=== PATIENT | male | born 1955 | race African-American/Black ===

== ENCOUNTER 2017-09-27 14:29 | Emergency (ER) | payer BC, MEDICAID ==
[2017-09-27 14:42] VITALS: BP 142/87
[2017-09-27] MEDS ORDERED: LIDOCAINE 1% INJ-PF (10 MG/ML) 30 ML SDV INJ ONE (14:53)
[2017-09-27] MEDS ORDERED: CEFTRIAXONE INJ 250 MG VIAL IM ONE (14:53)
[2017-09-27] MEDS ORDERED: AZITHROMYCIN 250 MG TABLET PO ONE (14:53)
--- NOTE | 2017-09-27 14:58 | ER Document Report ---
ED GI/ - General Chief Complaint: STD Exposure Stated Complaint: POSSIBLE STD Time Seen by Provider: 09/27/17 14:45 Mode of Arrival: Ambulatory Information source: Patient Notes: 62-year-old man presents to ED for complaint of possible STD exposure. He states that his girlfriend has abated use white discharge for the last 3 days and they are having unprotected sex. Patient denies any symptoms, any discharge , any pain or discomfort when urination. TRAVEL OUTSIDE OF THE [place] IN LAST 30 DAYS: No - HPI Patient complains to provider of: Other - Possible STD exposure Onset: Other - The current monogamous relationship with a girlfriend who has vaginal discharge Timing/Duration: Gradual Quality of pain: No pain Pain Level: Denies Sexual history: Unprotected intercourse, STD exposure - Possible Associated symptoms: None Exacerbated by: Denies Relieved by: Denies Similar symptoms previously: No Recently seen / treated by doctor: No - Related Data Allergies/Adverse Reactions: acetaminophen [From Tylenol] Allergy (Verified 09/27/17 14:30) ibuprofen Allergy (Verified 09/27/17 14:30) Past Medical History - General Information source: Patient - Social History Smoking Status: Current Every Day Smoker Cigarette use (# per day): Yes - One half pack per day Chew tobacco use (# tins/day): No Smoking Education Provided: Yes - 4 minutes Frequency of alcohol use: Heavy Drug Abuse: None Occupation: Retired Lives with: Spouse/Significant other Family History: Reviewed & Not Pertinent Patient has suicidal ideation: No Patient has homicidal ideation: No - Past Medical History Cardiac Medical History: Reports: None Pulmonary Medical History: Reports: None EENT Medical History: Reports: None Neurological Medical History: Reports: None Endocrine Medical History: Reports: None Renal/ Medical History: Reports: None Malignancy Medical History: Reports None GI Medical History: Reports: None Musculoskeltal Medical History: Reports Hx Arthritis, Reports Hx Musculoskeletal Deformity, Reports Hx Musculoskeletal Trauma Skin Medical History: Reports None Psychiatric Medical History: Reports: None Traumatic Medical History: Reports: None Infectious Medical History: Reports: None Past Surgical History: Reports: Hx Orthopedic Surgery - Carpal tunnel - Immunizations Immunizations up to date: Yes Review of Systems - Review of Systems Constitutional: No symptoms reported EENT: No symptoms reported Cardiovascular: No symptoms reported Respiratory: No symptoms reported Gastrointestinal: No symptoms reported Genitourinary: Other - Possible STD exposure Male Genitourinary: No symptoms reported Musculoskeletal: No symptoms reported Skin: No symptoms reported Hematologic/Lymphatic: No symptoms reported Neurological/Psychological: No symptoms reported -: Yes All other systems reviewed and negative Physical Exam - Vital signs Vitals: Temp Pulse Resp BP Pulse Ox 98.8 F 77 16 142/87 H 96 09/27/17 14:40 09/27/17 14:40 09/27/17 14:40 09/27/17 14:40 09/27/17 14:40 Interpretation: Normal - General General appearance: Appears well, Alert - HEENT Head: Normocephalic, Atraumatic Eyes: Normal Pupils: PERRL - Respiratory Respiratory status: No respiratory distress Chest status: Nontender Breath sounds: Normal Chest palpation: Normal - Cardiovascular Rhythm: Regular Heart sounds: Normal auscultation Murmur: No - Abdominal Inspection: Normal Distension: No distension Bowel sounds: Normal Tenderness: Nontender Organomegaly: No organomegaly - Genitourinary Tenderness: Nontender Cremasteric reflex: Normal Scrotum: Normal - Back Back: Normal, Nontender - Extremities General upper extremity: Normal inspection, Nontender, Normal color, Normal ROM , Normal temperature General lower extremity: Normal inspection, Nontender, Normal color, Normal ROM , Normal temperature, Normal weight bearing. No: Izabel's sign - Neurological Neuro grossly intact: Yes Cognition: Normal Orientation: AAOx4 Blount Coma Scale Eye Opening: Spontaneous Robb Coma Scale Verbal: Oriented Robb Coma Scale Motor: Obeys Commands Blount Coma Scale Total: 15 Speech: Normal Motor strength normal: LUE, RUE, LLE, RLE Sensory: Normal - Psychological Associated symptoms: Normal affect, Normal mood - Skin Skin Temperature: Warm Skin Moisture: Dry Skin Color: Normal Course - Re-evaluation Re-evalutation: 09/27/17 14:58 Patient presented to the ED for possible STD exposure. He is with his girlfriend who has abated use whitish green vaginal discharge. He states he has never had any STD in the past. He was treated with Rocephin and azithromycin while in the emergency room rather than wait for the results of his test. - Vital Signs Vital signs: Temp Pulse Resp BP Pulse Ox 98.8 F 77 16 142/87 H 96 09/27/17 14:40 09/27/17 14:40 09/27/17 14:40 09/27/17 14:40 09/27/17 14:40 - Laboratory Laboratory results interpreted by me: 09/27/17 14:47 Urine Glucose (UA) 50 H Urine Urobilinogen 2.0 H Discharge - Discharge Clinical Impression: Possible exposure to STD HTN (hypertension) Qualifiers: Hypertension type: unspecified Qualified Code(s): I10 - Essential (primary) hypertension Condition: Stable Disposition: HOME, SELF-CARE Instructions: Family Physicians / Practices Additional Instructions: You were seen today for possible exposure to STDs. States your significant other has vaginal discharge. CEPHALOSPORINS: An antibiotic of the cephalosporin class has been prescribed. This type of antibiotic covers a wide variety of infections, including those of the skin, lungs, middle ear, and urinary tract. This antibiotic is somewhat similar to the penicillin family. In rare cases , a person who is allergic to penicillin will also be allergic to this medication. If you have had a severe allergic reaction to penicillin, and have not taken this antibiotic since that time, notify your doctor. Antibiotics which cover many germs ("broad spectrum" antibiotics) are more likely to cause diarrhea or "yeast" infections. Women prone to vaginal yeast problems may suffer an attack after taking this antibiotic. In infants, oral thrush (white spots "stuck" on the cheek) or yeast diaper rash may result. See your doctor if these problems occur. Call the doctor at once if you develop hives, itching, shortness of breath , or lightheadedness. AZITHROMYCIN: Azithromycin (Zithromax) is a broad spectrum antibiotic in the same class as erythromycin. It can treat a variety of bacterial infections, but is most frequently used for respiratory infections. Azithromycin is extremely long-lasting. It accumulates in body tissues and continues to kill bacteria for many days. In order to improve absorption, Azithromycin should be taken at least one hour before or two hours after a meal. It does not have the same strong tendency to upset the stomach as erythromycin and is usually very well tolerated. Patients who have had a rash or other true allergic reactions to erythromycin should not take this medication. Call if you develop gastrointestinal distress, severe diarrhea, rash, hives, itching, or shortness of breath. You can call tomorrow morning after 9:00 [phone] for your culture results. If the cultures were positive you can need to wait 7 days before having any sexual intercourse if your cultures are negative then year clear. FOLLOW-UP CARE: If you have been referred to a physician for follow-up care, call the physician s office for an appointment as you were instructed or within the next two days. If you experience worsening or a significant change in your symptoms, notify the physician immediately or return to the Emergency Department at any time for re-evaluation. Forms: Elevated Blood Pressure, Smoking Cessation Education Referrals: BRIANNA BRAVO MD [ACTIVE STAFF] - Follow up as needed
[2017-09-27 15:15] LABS: APPEARANCE,URINE CLEAR; BILIRUBIN,URINE NEGATIVE (NEGATIVE); COLOR,URINE YELLOW; GLUCOSE, URINE 50 mg/dL (NEGATIVE); KETONES,URINE NEGATIVE (NEGATIVE); LEUKOCYTE ESTERASE,URINE NEGATIVE (NEGATIVE); NITRITE,URINE NEGATIVE (NEGATIVE); PROTEIN,URINE NEGATIVE (NEGATIVE); URINE SPECIFIC GRAVITY 1.016
[2017-09-27 16:47] LABS: CHLAM PCR NOT DETECTED (NOT DETECT); GON PCR NOT DETECTED (NOT DETECT)
== END 2017-09-27 15:29 | disposition home or self-care (01) ==
LOC: ER 14:29
DX: Z20.2 Contact with and (suspected) exposure to infections with a predominantly sexual mode of transmission (principal); I10 Essential (primary) hypertension; F17.210 Nicotine dependence, cigarettes, uncomplicated
CPT/HCPCS: 99283; 96372; 87086; 81001; 87491; 87591; Q0144; J3490; J0696

== ENCOUNTER 2019-02-17 01:22 | Emergency (ER) | payer SELFPAY ==
[2019-02-17 01:45] VITALS: BP 158/86
== END 2019-02-17 03:51 | disposition left against medical advice (07) ==
LOC: ER 01:22
DX: Z53.21 Procedure and treatment not carried out due to patient leaving prior to being seen by health care provider (principal); H57.12 Ocular pain, left eye

== ENCOUNTER 2019-07-12 11:32 | Emergency (ER) | payer SELFPAY ==
--- NOTE | 2019-07-12 11:49 | ER Document Report ---
ED Medical Screen (RME) - General Chief Complaint: Foot Pain Stated Complaint: TOE/FOOT PAIN Time Seen by Provider: 07/12/19 11:39 TRAVEL OUTSIDE OF THE [place] 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 his pain and swelling redness has become progressively worse over the last 3 weeks. Is not tried any [id number] medications. Patient was seen in [place] last week by his PCP, states they gave him a cream for his foot but it caused him to "burn". Patient is supposed be on blood pressure medication and he is not sure why he did get a refill of his blood pressure medication. Denies any blurred vision double vision loss of vision, chest pain or shortness of breath, fever chills. I have greeted and performed a rapid initial assessment of this patient. A comprehensive ED assessment and evaluation of the patient, analysis of test results and completion of the medical decision making process will be conducted by additional ED providers. PHYSICAL EXAMINATION: GENERAL: Well-appearing, well-nourished and in no acute distress. HEAD: Atraumatic, normocephalic CV: s1, s2 regular LUNGS: No respiratory distress Musculoskeletal: Normal range of motion NEUROLOGICAL: Normal speech, normal gait. SKIN: Warm, Dry, normal turgor, no rashes or lesions noted. left 4th digit with erythema, induration, warmth to touch with abrasion. cap refill < 3 seconds. - Related Data Allergies/Adverse Reactions: acetaminophen [From Tylenol] Allergy (Verified 09/27/17 14:30) ibuprofen Allergy (Verified 09/27/17 14:30) Past Medical History Renal/ Medical History: Denies: Hx Peritoneal Dialysis Musculoskeltal Medical History: Reports Hx Arthritis, Reports Hx Musculoskeletal Deformity, Reports Hx Musculoskeletal Trauma Past Surgical History: Reports: Hx Orthopedic Surgery - Carpal tunnel - Immunizations Immunizations up to date: Yes
[2019-07-12 12:37] LABS: ABSOLUTE EOSINOPHILS # (AUTO) 0.1 10^3/uL (0.0-0.6); ABSOLUTE LYMPHOCYTES (AUTO) 1.4 10^3/uL (0.5-4.7); ABSOLUTE MONOCYTES (AUTO) 0.7 10^3/uL (0.1-1.4); ABSOLUTE NEUT (AUTO) 4.1 10^3/uL (1.7-8.2); BASOPHILS % (AUTO) 0.4 % (0-2); EOSINOPHILS % (AUTO) 1.8 % (0-6); HEMATOCRIT 44.9 % (37.9-51.0); HEMOGLOBIN 15.7 g/dL (13.5-17.0); LYMPHOCYTES % (AUTO) 21.6 % (13-45); MEAN CORPUSCULAR HEMOGLOBIN 32.5 pg (27.0-33.4); MEAN CORPUSCULAR HGB CONC 34.9 g/dL (32.0-36.0); MEAN CORPUSCULAR VOLUME 93 fl (80-97); PLATELET COUNT 262 10^3/uL (150-450); RED BLOOD COUNT 4.83 10^6/uL (4.35-5.55); RED CELL DISTRIBUTION WIDTH 13.1 % (11.5-14.0); SEGMENTED NEUTROPHILS % (AUTO) 65.2 % (42-78); TOTAL CELLS COUNTED % (AUTO) 100 %; WHITE BLOOD COUNT 6.3 10^3/uL (4.0-10.5)
--- NOTE | 2019-07-12 12:48 | RADIOLOGY REPORT (SQ) ---
EXAM DESCRIPTION: TOE LEFT IMAGES COMPLETED DATE/TIME: 07/12/2019 12:35 pm REASON FOR STUDY: 4th toe with swelling, tenderness, open wound COMPARISON: None. NUMBER OF VIEWS: Three views. TECHNIQUE: AP, lateral, and oblique images acquired of the left fourth toe. LIMITATIONS: None. FINDINGS: MINERALIZATION: Normal. BONES: No acute fracture or dislocation. No worrisome bone lesions. JOINTS: No effusions. SOFT TISSUES: Diffuse 4th toe soft tissue swelling is present without soft tissue gas or radiopaque f oreign body OTHER: No other significant finding. IMPRESSION: Diffuse 4th toe soft tissue swelling is present without soft tissue gas or radiopaque fo reign body COMMENT: SITE OF TRAUMA/COMPLAINT MARKED/STAMP COMPLETED: YES. TECHNICAL DOCUMENTATION: JOB ID: [id number] 2010 [employer]- All Rights Reserved Reading location - IP/workstation name: [id number]
[2019-07-12 12:51] LABS: ALBUMIN 4.2 g/dL (3.5-5.0); ALKALINE PHOSPHATASE 48 U/L (38-126); ANION GAP 6 (5-19); ASPARTATE AMINO TRANSFERASE 25 U/L (17-59); BILIRUBIN,DIRECT 0.3 mg/dL (0.0-0.4); BILIRUBIN,TOTAL 1.2 mg/dL (0.2-1.3); BLOOD UREA NITROGEN 15 mg/dL (7-20); CALCIUM 9.7 mg/dL (8.4-10.2); CARBON DIOXIDE 29 mmol/L (22-30); CHLORIDE 105 mmol/L (98-107); GLUCOSE 109 mg/dL (75-110); POTASSIUM 4.2 mmol/L (3.6-5.0); TOTAL PROTEIN 8.3 g/dL (6.3-8.2)
--- NOTE | 2019-07-12 14:00 | ER Document Report ---
Entered by JULIETA CALLAHAN SCRIBE 07/12/19 1159 Acting as scribe for:KEELEY MULTAIN MD ED Extremity Problem, Lower - General Chief Complaint: Wound Infection Stated Complaint: TOE/FOOT PAIN Time Seen by Provider: 07/12/19 11:39 Primary Care Provider: [facility] [Provider Group] - Follow up in 3-5 days Mode of Arrival: Ambulatory Information source: Patient Notes: This 64-year-old male patient presents to the emergency department today with complaints of a x2-3 week history of left fourth toe pain and swelling. Patient mentions that he is originally from this area but moved to [place], [place] about 2 years ago. He states that he moved back to this area 8 days ago, and just prior to leaving [place], he had an x-ray done on this toe. He reports that he was prescribed some sort of cream to put on the toe which "made it burn". Patient denies a history of diabetes, stating he was told in the past that he was diabetic but he was "cleared of that by doctor Estrella Zavala". Patient states that he has not had any upper respiratory symptoms. He denies any cough, shortness of breath, or fevers. Pertinent PMHx/PSHx: Hypertension, hypercholesteremia (currently unmedicated, stating he "ran out of medication two days ago" - additional PMHx/PSHx not pertinent to this visit as recorded. PCP: no local MD TRAVEL OUTSIDE OF THE [place] IN LAST 30 DAYS: No - Related Data Allergies/Adverse Reactions: ibuprofen Allergy (Verified 09/27/17 14:30) Past Medical History - General Information source: Patient - Social History Smoking Status: Current Every Day Smoker Cigarette use (# per day): Yes - 1/2 ppd Chew tobacco use (# tins/day): No Smoking Education Provided: No Frequency of alcohol use: Social Drug Abuse: None Occupation: retired Lives with: Family Family History: Reviewed & Not Pertinent Patient has suicidal ideation: No Patient has homicidal ideation: No - Past Medical History Cardiac Medical History: Reports: Hx Hypercholesterolemia, Hx Hypertension Musculoskeletal Medical History: Reports Hx Arthritis, Reports Hx Musculoskeletal Deformity, Reports Hx Musculoskeletal Trauma Past Surgical History: Reports: Hx Orthopedic Surgery - Resection of left wrist ganglion cyst. - Immunizations Immunizations up to date: Yes Review of Systems - Review of Systems Constitutional: No symptoms reported EENT: No symptoms reported Cardiovascular: No symptoms reported Respiratory: No symptoms reported Gastrointestinal: No symptoms reported Genitourinary: No symptoms reported Male Genitourinary: No symptoms reported Musculoskeletal: See HPI, Other - left fourth toe pain, swelling Skin: No symptoms reported Hematologic/Lymphatic: No symptoms reported Neurological/Psychological: No symptoms reported -: Yes All other systems reviewed and negative Physical Exam - Vital signs Vitals: Temp Pulse Resp BP Pulse Ox 98.1 F 83 16 187/101 H 96 07/12/19 11:37 07/12/19 11:37 07/12/19 11:37 07/12/19 11:37 07/12/19 11:37 - Notes Notes: Physical Exam: General: Alert, non-toxic appearing. HEENT: Normocephalic. Atraumatic. PERRLA. Extraocular movements intact. Oropharynx clear. Neck: Supple. Respiratory: No respiratory distress. Abdominal: Normal Inspection. No distension. Extremities: Moves all four extremities. Neurological: Normal cognition. AAOx4. Normal speech. Psychological: Normal affect. Normal Mood. Skin: Left fourth toe is significantly swollen and darkened in color. The medial plantar surface of the left fourth toe is rubbed raw, this area is desquamated and exquisitely tender with palpation. There is no discharge from the toe. Course - Re-evaluation Re-evalutation: 07/12/19 14:06 Patient reports that he is allergic to Tylenol, it upsets his stomach. He is not allergic to Percocet, which contains Tylenol. - Vital Signs Vital signs: Temp Pulse Resp BP Pulse Ox 97.8 F 75 18 165/78 H 100 07/12/19 15:17 07/12/19 15:17 07/12/19 15:17 07/12/19 15:17 07/12/19 15:17 - Laboratory Result Diagrams: 07/12/19 12:10 07/12/19 12:10 Laboratory results interpreted by me: 07/12/19 12:10 Total Protein 8.3 H - Diagnostic Test Radiology reviewed: Image reviewed, Reports reviewed - X-ray left foot shows the fourth toe with diffuse swelling without soft tissue gas. Discharge - Discharge Clinical Impression: Cellulitis of toe of left foot High blood pressure Qualifiers: Hypertension type: unspecified Qualified Code(s): I10 - Essential (primary) hypertension Condition: Stable Disposition: HOME, SELF-CARE Additional Instructions: Cellulitis: You have an infection of your skin and underlying soft tissues called cellulitis. This is due to bacteria, which can enter through any break in the skin, or even through an irritated hair follicle. Untreated, cellulitis will usually worsen. Antibiotics are required. Usually, warm packs or warm soaks, and elevation of the infected area are recommended. You should start getting better within 24 to 36 hours. Most infections respond quickly to the right medication. Follow-up care is important, however, to check for abscess (boil) formation, unsuspected foreign body, or resistant infection. If you develop fever, chills, or if the area of infection is becoming rapidly more swollen or painful, call the doctor at once. Take medications as prescribed. Elevate your foot as much as possible. Keep the toe clean and dressed with Neosporin or bacitracin ointment. Call [facility] Saturday to schedule an appointment next week to check the toe infection. Follow-up with a local medical doctor to manage your blood pressure and cholesterol. RETURN TO THE EMERGENCY ROOM IF ANY NEW OR WORSENING SYMPTOMS. Prescriptions: Atorvastatin Calcium [Lipitor 10 mg Tablet] 10 mg PO QHS #30 tablet Clindamycin HCl 300 mg PO QID #28 capsule Hydrochlorothiazide [Hydrodiuril 12.5 mg Tablet] 12.5 mg PO QAM #30 capsule Losartan Potassium 50 mg PO DAILY #30 tablet Oxycodone HCl/Acetaminophen [Percocet 5-325 mg Tablet] 1 tab PO ASDIR PRN #12 tablet PRN Reason: Referrals: [facility] [Provider Group] - Follow up in 3-5 days I personally performed the services described in the documentation, reviewed and edited the documentation which was dictated to the scribe in my presence, and it accurately records my words and actions.
[2019-07-12] MEDS ORDERED: SULFAMETHOXAZOLE/TRIMETHOPRIM 800-160 MG TABLET PO ONE (14:02)
[2019-07-12] MEDS ORDERED: OXYCODONE-ACETAMINOPHEN 5-325 MG TABLET PO ONE (14:05)
[2019-07-12] MEDS ORDERED: CLINDAMYCIN HCL 150 MG CAPSULE PO ONE (14:12)
[2019-07-12 15:18] VITALS: BP 165/78
== END 2019-07-12 15:17 | disposition home or self-care (01) ==
LOC: ER 11:32
DX: L03.032 Cellulitis of left toe (principal); I10 Essential (primary) hypertension; F17.210 Nicotine dependence, cigarettes, uncomplicated; Z88.8 Allergy status to other drugs, medicaments and biological substances
CPT/HCPCS: 36415; 80053; 85025; 99283